=== PATIENT | female | born 1980 | race Caucasian/White ===

== ENCOUNTER 2016-07-28 23:57 | Emergency (ER) | payer OTHER ==
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
[2016-07-29 01:35] VITALS: BP 126/65; PULSE 75; TEMP 97.5; BMI 24.7
[2016-07-29] MEDS ORDERED: ACETAMINOPHEN/CAFFEINE/BUTALBITAL 1 TAB PO ONE (01:36)
[2016-07-29] MEDS ORDERED: ACETAMINOPHEN/CAFFEINE/BUTALBITAL 1 TAB ONE (01:45)
--- NOTE | 2016-07-29 02:00 | PDOC ---
*Physical Exam - Vital Signs Last Vital Signs Temp Pulse Resp BP Pulse Ox 97.5 F L 75 16 126/65 100 07/29/16 01:32 07/29/16 01:32 07/29/16 01:32 07/29/16 01:32 07/29/16 01:32 ED Treatment Course - Medications Given in the ED: ED Medications Discontinued Medications Generic Name Dose Route Start Last Admin Trade Name Freq PRN Reason Stop Dose Admin Acetaminophen/Butalbital/Caffeine 1 tablet 07/29/16 01:36 07/29/16 01:44 Fioricet - PO 07/29/16 01:37 1 tablet ONCE ONE Administration Medical Decision Making - Medical Decision Making 07/29/16 01:59 agree with care from MEDIA THEORIST AND AUTHOR OF Dylan *DC/Admit/Observation/Transfer Diagnosis at time of Disposition: Head injury Qualifiers: Encounter type: initial encounter Qualified Code(s): S09.90XA - Unspecified injury of head, initial encounter Concussion Qualifiers: Encounter type: initial encounter Loss of consciousness presence/duration: without LOC Qualified Code(s): S06.0X0A - Concussion without loss of consciousness, initial encounter - Discharge Dispostion Condition at time of disposition: Fair - Prescriptions Prescriptions: Ondansetron [Zofran Odt -] 4 mg SL Q6H PRN #24 od.tablet PRN Reason: Nausea - Referrals Referrals: Anthony Sethi DO [Staff Physician] - - Patient Instructions Printed Discharge Instructions: DI for Concussion, DI for Closed Head Injury, DI for Postconcussion Syndrome Additional Instructions: FOLLOW UP WITH DR. SETHI (NEUROLOGY). CALL TO SCHEDULE APPOINTMENT IF SYMPTOMS PERSIST. RETURN TO EMERGENCY DEPARTMENT IF SYMPTOMS WORSEN OR ANY CONCERNS. RETURN FOR FURTHER EVALUATION. Headache or a feeling of pressure in the head Temporary loss of consciousness Confusion or feeling as if in a fog Amnesia surrounding the traumatic event Dizziness or "seeing stars" Ringing in the ears Nausea Vomiting Slurred speech Delayed response to questions Appearing dazed Fatigue You may have some symptoms of concussions immediately. Others may be delayed for hours or days after injury, such as: Concentration and memory complaints Irritability and other personality changes Sensitivity to light and noise Sleep disturbances Psychological adjustment problems and depression Disorders of taste and smell Symptoms in children Head trauma is very common in young children. But concussions can be difficult to recognize in infants and toddlers because they can't describe how they feel. Concussion clues may include: Appearing dazed Listlessness and tiring easily Irritability and crankiness Loss of balance and unsteady walking Crying excessively Change in eating or sleeping patterns Lack of interest in favorite toys When to see a doctor See a doctor within 1 to 2 days if: You or your child experiences a head injury, even if emergency care isn't required The [place] [employer] recommends that you call your child's doctor for anything more than a light bump on your child's head. If your child doesn't have signs of a serious head injury, remains alert, moves normally and responds to you, the injury is probably mild and usually doesn't need further testing. In this case, if your child wants to nap, it's OK to let him or her sleep. If worrisome signs develop later, seek emergency care. Seek emergency care for an adult or child who experiences a head injury and symptoms such as: Repeated vomiting A loss of consciousness lasting longer than 30 seconds A headache that gets worse over time Changes in his or her behavior, such as irritability Changes in physical coordination, such as stumbling or clumsiness Confusion or disorientation, such as difficulty recognizing people or places Slurred speech or other changes in speech Other symptoms include: Seizures Vision or eye disturbances, such as pupils that are bigger than normal (dilated pupils) or pupils of unequal sizes Lasting or recurrent dizziness Obvious difficulty with mental function or physical coordination Symptoms that worsen over time Large head bumps or bruises on areas other than the forehead in children, especially in infants under 12 months of age Athletes Never return to play or vigorous activity while signs or symptoms of a concussion are present. An athlete with a suspected concussion should not return to play until he or she has been medically evaluated by a health aged or disabled care worker trained in evaluating and managing concussions. Children and adolescents should be evaluated by a health aged or disabled care worker trained in evaluating and managing pediatric concussions. Adult, child and adolescent athletes with a concussion also should not return to play on the same day as the injury. Causes Your brain has the consistency of gelatin. It's cushioned from everyday jolts and bumps by cerebrospinal fluid inside your skull. A violent blow to your head and neck or upper body can cause your brain to slide back and forth forcefully against the inner oseguera of your skull. Sudden acceleration or deceleration of the head, caused by events such as a car crash or being violently shaken, also can cause brain injury. These injuries affect brain function, usually for a brief period, resulting in signs and symptoms of concussion. This type of brain injury may lead to bleeding in or around your brain, causing symptoms such as prolonged drowsiness and confusion. These symptoms may develop immediately or later. Such bleeding in your brain can be fatal. That's why anyone who experiences a brain injury needs monitoring in the hours afterward and emergency care if symptoms worsen. Risk factors Activities and factors that may increase your risk of a concussion include: Falling, especially in young children and older adults Participating in a high-risk sport, such as football, hockey, soccer, rugby, boxing or other contact sport Participating in high-risk sports without proper safety equipment and supervision Being involved in a motor vehicle collision Being involved in a pedestrian or bicycle accident Being a soldier involved in combat Being a victim of physical abuse Having had a previous concussion Complications Potential complications of concussion include: Post-traumatic headaches. Some people experience headaches within a week to a few months after a brain injury. Post-traumatic vertigo. Some people experience a sense of spinning or dizziness for days, week or months after a brain injury. Post-concussion syndrome. Some people have symptoms such as headaches, dizziness and thinking difficulties a few days after a concussion. Symptoms may continue for weeks or months. Cumulative effects of multiple brain injuries. It's possible that some people who have had one or more traumatic brain injuries over the course of their lives are at greater risk of developing lasting, possibly progressive, impairment that limits function. This is an area of active research. Second impact syndrome. Rarely, experiencing a second concussion before signs and symptoms of a first concussion have resolved may result in rapid and usually fatal brain swelling. Concussion changes the levels of brain chemicals. It usually takes about a week for these levels to stabilize again, but recovery time varies. It's important for athletes never to return to sports while they're still experiencing signs and symptoms of concussion. Print Language: IRISH - Post Discharge Activity Work/School Note: Back to Work
== END 2016-07-29 01:40 | disposition home or self-care (01) ==
LOC: JER 23:57 → SUPCPDRO 23:57 → JER 07-29 01:40
DX: S06.0X0A Concussion without loss of consciousness, initial encounter (principal); V48.0XXA Car driver injured in noncollision transport accident in nontraffic accident, initial encounter; Y92.488 Other paved roadways as the place of occurrence of the external cause; Y93.89 Activity, other specified; E03.9 Hypothyroidism, unspecified
CPT/HCPCS: 99282-25